=== PATIENT | female | born 1990 | race Caucasian/White ===

== ENCOUNTER 2020-10-05 16:14 | Emergency (ER) | payer OTHER | END 2020-10-05 16:45 | disposition home or self-care (01) | LOC: JVIRT 16:14 | DX: U07.1 COVID-19 (principal) | CPT/HCPCS: C9803; G2012-GT; U0003 ==

== ENCOUNTER 2024-01-02 17:54 | Observation (INO) | payer OTHER ==
[2024-01-02 20:44] LABS: BASO % 0.6 % (0-2.0); EOS % 1.4 % (0-4.5); HEMATOCRIT 37.9 % (32.4-45.2); HEMOGLOBIN 12.9 GM/dL (10.7-15.3); LYMPH % 35.7 % (8-40); MCH 28.3 pg (25.7-33.7); MEAN CELL VOLUME 83.2 fl (80-96); MEAN PLT VOLUME 7.9 fl (7.5-11.1); MONO % 6.6 % (3.8-10.2); NEUT % 55.7 % (42.8-82.8); PLATELET COUNT 422 10^3/uL (134-434); RBC 4.55 M/mm3 (3.60-5.2); RDW 13.9 % (11.6-15.6); WHITE BLOOD COUNT 8.8 K/mm3 (4.0-10.0)
[2024-01-02 20:46] LABS: VENOUS BASE EXCESS -3.2 mmol/L (-2-2); VENOUS O2 SATURATION 50.4 % (70-80); VENOUS PCO2 38.8 mmHg (38-52); VENOUS PH 7.367 (7.310-7.410)
[2024-01-02 20:53] LABS: INR 1.07 (0.83-1.09); PROTHROMBIN TIME (PATIENT) 12.4 SEC (9.7-13.0)
[2024-01-02 20:56] LABS: ACTIVATED PTT 34.6 SECONDS (25.2-36.5)
[2024-01-02 21:08] LABS: POTASSIUM 4.8 mmol/L (3.5-5.1)
[2024-01-02 21:10] LABS: CALCIUM 8.7 mg/dL (8.5-10.1)
[2024-01-02 21:11] LABS: ALBUMIN 3.7 g/dl (3.4-5.0); BLOOD UREA NITROGEN 12.8 mg/dL (7-18)
[2024-01-02 21:13] LABS: CREATININE 0.7 mg/dL (0.55-1.3)
[2024-01-02 21:15] LABS: BILIRUBIN,TOTAL 0.3 mg/dL (0.2-1); TOT PROT 7.5 g/dl (6.4-8.2)
[2024-01-02 21:18] LABS: N-TERMINAL BNP 36.1 pg/ml (5-125)
[2024-01-02 21:53] LABS: PH,URINE 6.5 (5.0-8.0); URINE APPEARANCE CLEAR; URINE BILIRUBIN NEGATIVE (NEGATIVE); URINE COLOR YELLOW; URINE GLUCOSE (UA) NEGATIVE (NEGATIVE); URINE KETONE NEGATIVE (NEGATIVE); URINE LEUK ESTERASE NEGATIVE (NEGATIVE); URINE NITRITE NEGATIVE (NEGATIVE); URINE PROTEIN NEGATIVE (NEGATIVE)
[2024-01-02 21:56] LABS: HCG,QUALITATIVE URINE Negative
[2024-01-02] MEDS ORDERED: ALBUTEROL SO4 2.5/IPRATROPIUM 0.5 INH SOL 3 ML VIAL.NEB. NEB ONE (22:44)
[2024-01-02] MEDS ORDERED: methylPREDNISolone NA SUCC 125 MG/2 ML VIAL ONE (22:44)
[2024-01-02] MEDS: ALBUTEROL SO4 2.5/IPRATROPIUM 0.5 INH SOL 3 ML VIAL.NEB. NEB ONE (22:50)
[2024-01-02] MEDS: methylPREDNISolone NA SUCC 125 MG/2 ML VIAL IVPB ONE (22:50)
[2024-01-02] MEDS ORDERED: IBUPROFEN 600 MG TABLET (FP) PO ONE (22:52)
[2024-01-02] MEDS: IBUPROFEN 600 MG TABLET (FP) PO ONE (22:55)
[2024-01-03] MEDS: MELATONIN 5 MG TABLETS PO PRN (03:46)
[2024-01-03] MEDS: ACETAMINOPHEN 325 MG TABLET (FP) PO PRN (03:46)
[2024-01-03] MEDS: guaiFENesin 200 MG/10 ML 10 ML UNIT-DOSE CUPS PO PRN (03:46)
[2024-01-03 06:50] LABS: BASO % 0.2 % (0-2.0); HEMATOCRIT 38.8 % (32.4-45.2); HEMOGLOBIN 13.4 GM/dL (10.7-15.3); LYMPH % 10.8 % (8-40); MCH 28.7 pg (25.7-33.7); MCHC 34.4 g/dl (32.0-36.0); MEAN CELL VOLUME 83.5 fl (80-96); MEAN PLT VOLUME 8.2 fl (7.5-11.1); MONO % 0.7 % (3.8-10.2); NEUT % 88.3 % (42.8-82.8); PLATELET COUNT 432 10^3/uL (134-434); RBC 4.65 M/mm3 (3.60-5.2); RDW 13.2 % (11.6-15.6)
[2024-01-03 07:26] LABS: CHLORIDE 110 mmol/L (98-107); POTASSIUM 4.2 mmol/L (3.5-5.1); SODIUM 140 mmol/L (136-145)
[2024-01-03 07:29] LABS: CALCIUM 9.3 mg/dL (8.5-10.1)
[2024-01-03 07:30] LABS: ANION GAP 8 mmol/L (4-13); BLOOD UREA NITROGEN 10.4 mg/dL (7-18); CO2 22 mmol/L (21-32); GLUCOSE,RANDOM 164 mg/dL (74-106)
[2024-01-03 07:33] LABS: CREATININE 0.7 mg/dL (0.55-1.3)
[2024-01-03] MEDS ORDERED: ACETAMINOPHEN 325 MG TABLET (FP) ONE (08:56)
[2024-01-03] MEDS ORDERED: methylPREDNISolone NA SUCC 40 MG/1 ML VIAL ONE (08:56)
[2024-01-03] MEDS: methylPREDNISolone NA SUCC 40 MG/1 ML VIAL IVPUSH SCH (09:00)
[2024-01-03] MEDS: BUDESONIDE/FORMETEROL FUMARATE 160/4.5 mcg INHALER IH SCH (11:28)
[2024-01-03 11:59] VITALS: BMI 31.5
[2024-01-03] MEDS: AZITHROMYCIN IVPB 500 MG/250 ML BAG IVPB SCH (13:20)
[2024-01-04] MEDS: ALBUTEROL SO4 0.083% IH SOL 2.5 MG/3 ML VIAL.NEB. NEB PRN (07:42)
[2024-01-04] MEDS: IBUPROFEN 600 MG TABLET (FP) PO PRN (12:12)
[2024-01-05 04:48] VITALS: RESP 18
[2024-01-05 11:42] VITALS: BP 112/66; PULSE 77; TEMP 98.9
== END 2024-01-05 13:37 | disposition home or self-care (01) ==
LOC: JER 17:54 → JERBED 01-03 02:44 → J6S 01-03 11:10
PROVIDERS: ADMIT Internal Medicine; ATTEND Internal Medicine
PROC: 3E0F7GC Introduction of Other Therapeutic Substance into Respiratory Tract, Via Natural or Artificial Opening (ICD-10-PCS; principal; 2024-01-03)
PROC: 3E03329 Introduction of Other Anti-infective into Peripheral Vein, Percutaneous Approach (ICD-10-PCS; 2024-01-03)
PROC: 3E033GC Introduction of Other Therapeutic Substance into Peripheral Vein, Percutaneous Approach (ICD-10-PCS; 2024-01-03)
DX: J18.9 Pneumonia, unspecified organism (principal); M79.10 Myalgia, unspecified site; R05.9 Cough, unspecified; R07.9 Chest pain, unspecified
CPT/HCPCS: 0241U-QW; 36415; 71046-TC-FY; 71250-TC; 80048; 80053; 81003; 82550; 82803; 83880; 84484; 84703; 85025; 85379; 85610; 85651; 85730; 86038; 86140; 87040; 87086; 87633; 87899; 93005; 93010; 93306-TC; 94640; 96365; 96367; 96375; 99285-25; G0378